=== PATIENT | female | born 1985 | race Caucasian/White ===

== ENCOUNTER 2017-05-25 08:04 | Outpatient (CLI) | payer OTHER ==
--- NOTE | 2017-05-25 12:19 | ULT ---
ULTRASOUND ABDOMEN COMPLETE: HISTORY: 31-year-old female with four weeks of right upper quadrant abdominal pain, right flank pain, and jl sea and vomiting. FINDINGS: Liver: Normal size and echogenicity. Gallbladder: Contracted and difficult to evaluate. No obvious calculus identified. No pericholecysti c edema. Common duct: 5 mm Spleen: Loss of hilar concavity. Lobulations at the hilum. Dimension of 15.5 x 7.5 x 8 cm. Pancreas: Nonspecific sonographic appearance. Kidneys: No hydronephrosis. Normal morphology. Abdominal aorta: Normal caliber. Inferior vena cava: Unremarkable. IMPRESSION: 1. Mild splenomegaly. 2. Contracted gallbladder. JN R POS: [facility]
== END 2017-05-25 08:05 | disposition home or self-care (01) ==
LOC: NAV ULT 08:04
PROVIDERS: ATTEND Internal Medicine Gastroenterology
DX: R10.9 Unspecified abdominal pain (principal)
CPT/HCPCS: 76700

== ENCOUNTER 2017-12-11 07:17 | Emergency (ER) | payer OTHER ==
[2017-12-11] MEDS ORDERED: Sodium Chloride 0.9% 1,000 ML ONE (07:34)
[2017-12-11 08:02] LABS: #Basophils 0.1 thou/uL (0.0-0.2); #Eosinphils 0.1 thou/uL (0.0-0.7); #Lymphocytes 1.1 thou/uL (1.20-3.40); #Monocytes 0.4 thou/uL (0.11-0.59); #Neutrophils 5.3 thou/uL (1.40-6.50); %Basophils 0.9 % (0.0-1.0); %Eosinophils 1.9 % (0.0-10.0); %Lymphocytes 15.7 % (21.0-51.0); %Monocytes 5.8 % (0.0-10.0); %Neutrophils 75.6 % (42.0-75.0); Mean Corpuscular HGB CONC 33.8 g/dL (32.0-36.0); Mean Corpuscular Hemoglobin 28.3 pg (27.0-31.0); Mean Corpuscular Volume 83.8 fl (81.0-99.0); Mean Platelet Volume 7.7 fL (7.4-10.4); Platelet Count 262 thou/uL (130-400); RBC Distribution Width 11.9 % (11.5-14.5); Red Blood Cell (RBC) Count 4.25 mill/uL (4.20-5.40)
[2017-12-11 08:14] LABS: Anion Gap 12 mmol/L (10-20); BUN (Urea Nitrogen) 8 mg/dL (7.0-18.7); Calc. Creatinine Clearance 0 mL/min (70-130); Calcium 9.3 mg/dL (7.8-10.44); Carbon Dioxide 22 mmol/L (22-29); Chloride 108 mmol/L (98-107); Estimated GFR-MDRD Greater than 90; Glucose 101 mg/dL (70-105); Potassium 3.9 mmol/L (3.5-5.1); Sodium 138 mmol/L (136-145)
== END 2017-12-11 08:44 | disposition home or self-care (01) ==
LOC: NAV ERS 07:17
DX: R00.2 Palpitations (principal); K21.9 Gastro-esophageal reflux disease without esophagitis; F41.9 Anxiety disorder, unspecified; Z79.899 Other long term (current) drug therapy
CPT/HCPCS: 80048; 83735; 84443; 85025; 93005; 96360; J7050

== ENCOUNTER 2017-12-22 05:45 | Emergency (ER) | payer OTHER ==
[2017-12-22] MEDS ORDERED: Sodium Chloride 0.9% 1,000 ML ONE (06:31)
[2017-12-22] MEDS ORDERED: Lorazepam 2 MG/ML VIAL ONE (06:31)
[2017-12-22] MEDS ORDERED: Acetaminophen 500 MG TAB ONE (06:31)
[2017-12-22] MEDS ORDERED: Metoclopramide HCl 10 MG/2 ML VIAL ONE (07:42)
[2017-12-22 07:49] LABS: #Lymphocytes 0.5 thou/uL (1.20-3.40); #Monocytes 0.3 thou/uL (0.11-0.59); #Neutrophils 4.1 thou/uL (1.40-6.50); %Basophils 0.6 % (0.0-1.0); %Lymphocytes 10.3 % (21.0-51.0); %Monocytes 5.4 % (0.0-10.0); %Neutrophils 82.6 % (42.0-75.0); Hemoglobin 11.7 g/dL (12.0-16.0); Mean Corpuscular HGB CONC 32.8 g/dL (32.0-36.0); Mean Corpuscular Hemoglobin 27.7 pg (27.0-31.0); Mean Corpuscular Volume 84.3 fl (81.0-99.0); Mean Platelet Volume 7.1 fL (7.4-10.4); Platelet Count 197 thou/uL (130-400); RBC Distribution Width 11.9 % (11.5-14.5); Red Blood Cell (RBC) Count 4.23 mill/uL (4.20-5.40); White Blood Cell (WBC) Count 4.9 thou/uL (4.8-10.8)
[2017-12-22 08:02] LABS: ALT (SGPT) 14 U/L (8-55); AST (SGOT) 13 U/L (5-34); Albumin 4.1 g/dL (3.5-5.0); Alkaline Phosphatase 87 U/L (40-150); Anion Gap 10 mmol/L (10-20); BUN (Urea Nitrogen) 8 mg/dL (7.0-18.7); Bilirubin, Total 0.8 mg/dL (0.2-1.2); Calc. Creatinine Clearance 0 mL/min (70-130); Calcium 8.9 mg/dL (7.8-10.44); Carbon Dioxide 23 mmol/L (22-29); Chloride 109 mmol/L (98-107); Estimated GFR-MDRD Greater than 90; Globulin 2.9 g/dL (2.4-3.5); Glucose 104 mg/dL (70-105); Potassium 3.9 mmol/L (3.5-5.1); Sodium 138 mmol/L (136-145)
== END 2017-12-22 08:42 | disposition home or self-care (01) ==
LOC: NAV ERS 05:45
DX: R00.2 Palpitations (principal); R51 Headache; K21.9 Gastro-esophageal reflux disease without esophagitis; F41.9 Anxiety disorder, unspecified; Z79.899 Other long term (current) drug therapy
CPT/HCPCS: 80053; 83735; 85025; 85379; 93005; 96361; 96374; 96375; J2060; J2765; J7050

== ENCOUNTER 2018-07-01 18:23 | Emergency (ER) | payer OTHER ==
[2018-07-01] MEDS ORDERED: Benzonatate 100 MG CAP ONE (18:54)
[2018-07-01] MEDS ORDERED: AMOXicillin 250 MG CAP ONE (18:54)
== END 2018-07-01 19:00 | disposition home or self-care (01) ==
LOC: NAV ERS 18:23
DX: J20.9 Acute bronchitis, unspecified (principal); B96.89 Other specified bacterial agents as the cause of diseases classified elsewhere; J01.00 Acute maxillary sinusitis, unspecified; K21.9 Gastro-esophageal reflux disease without esophagitis; F41.9 Anxiety disorder, unspecified; Z79.899 Other long term (current) drug therapy
CPT/HCPCS: 99283

== ENCOUNTER 2019-01-10 06:48 | Emergency (ER) | payer OTHER | END 2019-01-10 07:45 | disposition home or self-care (01) | LOC: NAV ERS 06:48 | DX: J06.9 Acute upper respiratory infection, unspecified (principal); K21.9 Gastro-esophageal reflux disease without esophagitis; F41.9 Anxiety disorder, unspecified; Z79.899 Other long term (current) drug therapy | CPT/HCPCS: 87804; 99283 ==

== ENCOUNTER 2019-11-21 20:11 | Emergency (ER) | payer OTHER ==
[2019-11-21 20:33] LABS: Bilirubin Negative (Negative); Blood, Urine Negative (Negative); Clarity Clear (Clear); Glucose, Urine (Dipstick) Negative (Negative); Leukocyte Negative (Negative); Nitrite Negative (Negative); Protein, Urine (Dipstick) Negative (Neg-Trace); Urobilinogen 0.2 mg/dL (Less than 2)
[2019-11-21 20:40] LABS: Pregnancy Test - Urine (BHCG) Negative (Negative); Pregu Control Background? CLEAR/WHITE (CLR/WHITE); Pregu Control Bar Appear? YES (CONTROL BAR)
[2019-11-21 20:47] LABS: #Basophils 0.1 thou/uL (0.0-0.2); #Eosinphils 0.2 thou/uL (0.0-0.7); #Lymphocytes 1.8 thou/uL (1.20-3.40); #Monocytes 0.4 thou/uL (0.11-0.59); #Neutrophils 4.7 thou/uL (1.40-6.50); %Basophils 0.8 % (0.0-1.0); %Eosinophils 3.2 % (0.0-10.0); %Lymphocytes 24.6 % (21.0-51.0); %Monocytes 5.3 % (0.0-10.0); %Neutrophils 66.1 % (42.0-75.0); Mean Corpuscular HGB CONC 32.9 g/dL (32.0-36.0); Mean Platelet Volume 6.9 fL (7.4-10.4); Platelet Count 285 thou/uL (130-400); RBC Distribution Width 12.9 % (11.5-14.5); Red Blood Cell (RBC) Count 4.09 mill/uL (4.20-5.40); White Blood Cell (WBC) Count 7.2 thou/uL (4.8-10.8)
[2019-11-21 21:04] LABS: ALT (SGPT) 16 U/L (8-55); AST (SGOT) 14 U/L (5-34); Albumin 4.4 g/dL (3.5-5.0); Alkaline Phosphatase 85 U/L (40-110); Anion Gap 14 mmol/L (10-20); BUN (Urea Nitrogen) 14 mg/dL (7.0-18.7); Bilirubin, Total 0.3 mg/dL (0.2-1.2); Calc. Creatinine Clearance 0 mL/min (70-130); Carbon Dioxide 26 mmol/L (22-29); Chloride 104 mmol/L (98-107); Estimated GFR-MDRD Greater than 90; Globulin 2.6 g/dL (2.4-3.5); Glucose 104 mg/dL (70-105); Lipase 52 U/L (8-78); Potassium 3.8 mmol/L (3.5-5.1); Sodium 140 mmol/L (136-145)
== END 2019-11-21 21:25 | disposition home or self-care (01) ==
LOC: NAV ERS 20:11
DX: R10.11 Right upper quadrant pain (principal); K21.9 Gastro-esophageal reflux disease without esophagitis; F41.9 Anxiety disorder, unspecified; Z79.899 Other long term (current) drug therapy
CPT/HCPCS: 80053; 81003; 81025; 83690; 85025; 99284

== ENCOUNTER 2022-08-19 20:06 | Emergency (ER) | payer OTHER | END 2022-08-19 21:57 | disposition home or self-care (01) | LOC: NAV ERS 20:06 | DX: S93.402A Sprain of unspecified ligament of left ankle, initial encounter (principal); K21.9 Gastro-esophageal reflux disease without esophagitis; G43.909 Migraine, unspecified, not intractable, without status migrainosus; X50.9XXA Other and unspecified overexertion or strenuous movements or postures, initial encounter ==